=== PATIENT | female | born 1990 | race Caucasian/White ===

== ENCOUNTER 2017-01-19 04:29 | Inpatient (IN) | payer MEDICAID, OTHER ==
[~2017-01-19] VITALS: Ht 170.2 cm; Wt 81.0 kg
[2017-01-19 05:15] LABS: BASOPHILS % (AUTO) 0.6 % (0.0-2.0); EOSINOPHILS % (AUTO) 1.2 % (1.0-6.0); HEMATOCRIT 46.5 % (36-46); HEMOGLOBIN 15.7 g/dL (12.0-16.0); LYMPHOCYTES # (AUTO) 2.5 K/uL (1.0-4.8); LYMPHOCYTES % (AUTO) 25.6 % (22.0-44.0); MEAN CORPUSCULAR HEMOGLOBIN 31.3 pg (26.0-34.0); MEAN CORPUSCULAR HGB CONC 33.9 G/dL (31.0-37.0); MEAN CORPUSCULAR VOLUME 93 fL (80-100); MONOCYTES # (AUTO) 0.5 K/uL (0.1-1.0); MONOCYTES % (AUTO) 5.4 % (2.0-9.0); NEUTROPHILS # (AUTO) 6.7 K/uL (1.8-7.7); NEUTROPHILS % (AUTO) 67.2 % (40.0-70.0); PLATELET COUNT (AUTO) 271 K/uL (150-450); RED BLOOD CELL COUNT(AUTO) 5.03 MIL/uL (4.00-5.20); RED CELL DISTRIBUTION WIDTH 11.8 % (11.5-14.5)
[2017-01-19] MEDS ORDERED: LORazepam 2 MG TABLET PO PRN (05:15)
[2017-01-19] MEDS ORDERED: HALOPERIDOL 5 MG TABLET PO PRN (05:15)
[2017-01-19] MEDS ORDERED: ZOLPIDEM TARTRATE 10 MG TABLET PO PRN (05:15)
[2017-01-19 05:21] LABS: ANION GAP 15 mmol/L (8-16); CALCIUM, TOTAL 9.5 mg/dL (8.8-10.5); CARBON DIOXIDE 23 mmol/L (22-29); CHLORIDE 100 mmol/L (98-107); CREATININE 0.91 mg/dL (0.60-1.30); GLOMERULAR FILTR. RATE CALC > 60 mL/min (>60); POTASSIUM 3.1 mmol/L (3.5-5.1); SODIUM SERUM 138 mmol/L (136-145); UREA NITROGEN, BLOOD 8 mg/dL (7-18)
[2017-01-19 05:27] LABS: ALANINE AMINOTRANSFERASE 31 U/L (12-78); ALBUMIN 4.4 g/dL (3.4-5.0); ASPARTATE AMINOTRANSFERASE 35 U/L (15-37); BILIRUBIN,TOTAL 0.6 mg/dL (0.1-1.0); TOTAL PROTEIN, SERUM 8.4 g/dL (6.4-8.2)
[2017-01-19 05:57] LABS: CHOL/HDL RATIO 1.5 (3.9-5.7)
[2017-01-19] MEDS ORDERED: LORazepam 2 MG/ML VIAL IM ONE (06:45)
[2017-01-19] MEDS ORDERED: HALOPERIDOL LACTATE 5 MG/ML VIAL IM ONE (06:45)
[2017-01-19] MEDS ORDERED: DiphenhydrAMINE HCL 50 MG/ML VIAL IM ONE (06:45)
[2017-01-19] MEDS ORDERED: POTASSIUM CHLORIDE 20 MEQ ER TABLET PO ONE (07:00)
[2017-01-19 16:43] VITALS: BP 124/79
[2017-01-19] MEDS ORDERED: INFLUENZA VIRUS VACCINE QVS 2017-18 (3YR+)/PF 60 MCG/0.5 ML SYRINGE IM ONE (19:00)
[2017-01-19] MEDS ORDERED: PNEUMOCOCCAL VACCINE POLYVALENT 0.5 ML VIAL [PPSV23] IM ONE (19:00)
[2017-01-20] MEDS ORDERED: MAGNESIUM HYDROXIDE SUSPENSION 30 ML UDCUP PO PRN (08:15)
[2017-01-20] MEDS ORDERED: BENZOCAINE/MENTHOL LOZENGE MM PRN (08:15)
[2017-01-20] MEDS ORDERED: ONDANSETRON HCL 4 MG TABLET PO PRN (08:15)
[2017-01-20] MEDS ORDERED: BENZOCAINE/MENTHOL LOZENGE [8 LOZENGES/PACKET] MM PRN (08:15)
[2017-01-20] MEDS ORDERED: CloNIDine HCL 0.1 MG TABLET PO PRN (08:15)
[2017-01-20] MEDS ORDERED: LOPERAMIDE HCL 2 MG CAPSULE PO PRN (08:15)
[2017-01-20] MEDS ORDERED: IBUPROFEN 600 MG TABLET PO PRN (08:15)
[2017-01-20] MEDS ORDERED: ACETAMINOPHEN 325 MG TABLET PO PRN (08:15)
[2017-01-20] MEDS ORDERED: ALBUTEROL SULFATE HFA 90 MCG/PUFF 8 GM INHALER IH PRN (08:15)
[2017-01-20] MEDS ORDERED: PETROLATUM,WHITE 71 GM JELLY TP PRN (08:15)
[2017-01-20] MEDS ORDERED: BACITRACIN 28.4 GM OINTMENT TP PRN (08:15)
[2017-01-20] MEDS ORDERED: POTASSIUM CHLORIDE 20 MEQ ER TABLET PO ONE (08:15)
[2017-01-20] MEDS ORDERED: MAG HYDROX/AL HYDROX/SIMETH ES 30 ML SUSPENSION UDCUP PO PRN (08:15)
[2017-01-20 08:36] VITALS: BP 127/94
[2017-01-20 16:33] VITALS: BP 130/77
== END 2017-01-20 17:30 | disposition home or self-care (01) | DRG 751 ==
LOC: EMS 04:31 → 3EC 16:10
DX: F23 Brief psychotic disorder (principal); F32.9 Major depressive disorder, single episode, unspecified; E87.6 Hypokalemia; F10.10 Alcohol abuse, uncomplicated; F12.90 Cannabis use, unspecified, uncomplicated; F17.210 Nicotine dependence, cigarettes, uncomplicated; F41.9 Anxiety disorder, unspecified; F42.9 Obsessive-compulsive disorder, unspecified; G47.00 Insomnia, unspecified; Y90.5 Blood alcohol level of 100-119 mg/100 ml; F15.90 Other stimulant use, unspecified, uncomplicated; Z71.6 Tobacco abuse counseling; Z91.5 Personal history of self-harm
CPT/HCPCS: 96372; 99285; 99406; G0480; J1200; J1630; J2060